=== PATIENT | female | born 1950 | race Caucasian/White ===

== ENCOUNTER 2016-09-06 09:52 | Emergency (ER) | payer MEDICARE, MEDICAID ==
[~2016-09-06] VITALS: Ht 144.8 cm; Wt 44.5 kg
[~2016-09-06 09:52] MED LIST: ACTO35TA PO; LEVO.05 PO; MONT5CHW2 CHEW; NYST100010 SS; PRIL40CA PO
[2016-09-06 09:53] VITALS: BP 117/68; PULSE 82; RESP 20; TEMP 98.1; O2SAT 96
--- NOTE | 2016-09-06 10:12 | PD ---
HPI Chief Complaint: Musculoskeletal Complaint Time Seen by Provider: 10:11 Travel History International Travel<30 days: No Contact w/Intl Traveler<30days: No Traveled to known affect area: No History of Present Illness HPI 66-year-old female presents to the emergency Department with complaint of right sided mid to lower back pain times one week. Reports picking up something heavy and straining her back. Back pain has progressively gotten worse. Denies encopresis, incontinence, saddle anesthesias. Denies fever, chills, nausea, vomiting, abdominal pain. Denies dysuria, urgency, frequency. Denies history of kidney stones. Has taken Advil and Tylenol with some relief. Has tried heating pad to affected area with some relief. Is using a back brace for support with some relief. Pain is worse with movement and palpation. Allergies to contrast media and sulfa. Denies anticoagulant therapy. Has an established primary care provider in [place]. No other modifying factors or associated signs and symptoms. PFSH Past Medical History GERD: Yes Musculoskeletal: Yes (OSTEOPOROSIS) Thyroid Disease: Yes Past Surgical History Abdominal Surgery: Yes (EX LAP) Social History Alcohol Use: No Tobacco Use: No Substance Use: No Allergies-Medications (Allergen,Severity, Reaction): Coded Allergies: Contrast Media (Unverified Allergy, Severe, HIVES, 09/06/16) Sulfa (Unverified Allergy, Severe, MUSCLE ACHES, RASH, 09/06/16) Reported Meds & Prescriptions Reported Meds & Active Scripts Active Ibuprofen 600 Mg Tab 600 Mg PO Q8HR PRN Robaxin (Methocarbamol) 500 Mg Tab 500 Mg PO QID PRN Mycostatin Susp (Nystatin) 500,000 U/5 Ml Susp 5 Ml SS QID 10 Days Reported Singulair (Montelukast Sodium) 5 Mg Chw 5 Mg CHEW HS Actonel 35 mg (Risedronate) 35 Mg Tab 1 Tab PO Q7D Prilosec 40 mg cap (Omeprazole) 40 Mg Cap 40 Mg PO DAILY Synthroid (Levothyroxine Sodium) 50 Mcg Tab 50 Mcg PO DAILY Review of Systems Except as stated in HPI: all other systems reviewed are Neg Physical Exam Narrative GENERAL: Well-nourished, well-developed female patient, in no acute distress; afebrile, nontoxic-appearing SKIN: Warm and dry. HEAD: Atraumatic. Normocephalic. EYES: Pupils equal and round. No scleral icterus. No injection or drainage. ENT: Mucosa pink and moist. Airway patent. NECK: Trachea midline. CARDIOVASCULAR: Regular rate. RESPIRATORY: No accessory muscle use. GASTROINTESTINAL: Abdomen soft, non-tender, nondistended. Positive bowel sounds. No hepato-splenomegaly, or palpable masses. No guarding. MUSCULOSKELETAL: Bilateral lower extremities supple and non-tense with 2+ pedal pulses and sensory intact; with full range of motion and 5/5 strength. Ambulatory with slow gait in the room. Active dorsiflexion and extension of bilateral feet. Sitting up in bed at 90. No obvious deformities. No clubbing. No cyanosis. No edema. BACK: No midline point tenderness on palpation of the lumbar spine. Tenderness on palpation of right iliosacral area. No obvious deformities. NEUROLOGICAL: Awake and alert. Oriented 3. No obvious cranial nerve deficits. Motor grossly within normal limits. Normal speech. Moves all extremities. 5/5 strength to all extremities. Sensory intact. PSYCHIATRIC: Appropriate mood and affect; insight and judgment normal. Data Data Last Documented VS Vital Signs Date Time Temp Pulse Resp B/P Pulse Ox O2 Delivery O2 Flow Rate FiO2 09/06/16 09:53 98.1 82 20 117/68 96 Room Air Orders Urinalysis - C+S If Indicated (09/06/16 10:12) Ketorolac Inj (Toradol Inj) (09/06/16 10:30) Orphenadrine Inj (Norflex Inj) (09/06/16 10:30) Labs Laboratory Tests Test 09/06/16 10:40 Urine Color YELLOW Urine Turbidity CLEAR Urine pH 5.5 Urine Specific [place] 1.028 Urine Protein TRACE mg/dL Urine Glucose (UA) NEG mg/dL Urine Ketones NEG mg/dL Urine Occult Blood SMALL Urine Nitrite NEG Urine Bilirubin NEG Urine Urobilinogen LESS THAN 2.0 MG/DL Urine Leukocyte Esterase NEG Urine RBC 2 /hpf Urine WBC 1 /hpf Urine Squamous Epithelial <1 /hpf Cells Urine Mucus FEW /lpf Microscopic Urinalysis Comment CULT NOT INDICATED MDM Medical Decision Making Medical Screen Exam Complete: Yes Emergency Medical Condition: Yes Medical Record Reviewed: Yes Differential Diagnosis Low back strain, muscle spasm, UTI, pyelonephritis Narrative Course 66-year-old female with right-sided low mid to low back pain. Lifted something heavy of week ago and that she strained her lower back but has been progressively getting worse. Denies fever, chills, nausea, vomiting. Patient is afebrile and nontoxic-appearing. She denies urinary symptoms. I will check a urinalysis to rule out UTI. Denies history of kidney stones. Denies encopresis, incontinence, saddle anesthesias. Patient is ambulatory with a slow , guarded gait. Urinalysis ordered. Toradol and Norflex ordered. 1143: Urinalysis negative for infection. Diagnosis Primary Impression: Low back strain Qualified Code: S39.012A - Low back strain, initial encounter Referrals: Primary Care Physician Patient Instructions: General Instructions, Low Back Strain (ED) Additional Instructions: Tylenol or ibuprofen as directed and as needed to reduce pain Robaxin as prescribed for muscle spasms Get adequate rest Ice and/or heating pad to affected area to reduce pain Avoid aggravating activity; increase activity as tolerated Follow-up with primary care provider Return to the emergency department immediately with worsening symptoms Med/Other Pt SpecificInfo: Prescription(s) given Scripts Ibuprofen 600 Mg [id number] Mg PO Q8HR PRN (PAIN) #20 TAB Ref 0 Prov:Donna Echeverria 09/06/16 Methocarbamol (Robaxin)500 Mg [id number] Mg PO QID PRN (MUSCLE SPASM) #30 TAB Ref 0 Prov:Donna Echeverria 09/06/16 Disposition: 01 DISCHARGE HOME Condition: Stable Donna Echeverria Sep 06, 2016 10:12
[2016-09-06] MEDS ORDERED: ORPHENADRINE INJ 60 MG/2 ML AMP IM ONE (10:30)
[2016-09-06] MEDS ORDERED: KETOROLAC TROMETHAMINE 60 MG/2 ML (IM) VIAL IM ONE (10:30)
[2016-09-06 11:18] LABS: BLOOD, URINE SMALL (NEG); GLUCOSE,URINE NEG (NEG); KETONE, URINE NEG (NEG); MUCUS URINE FEW /lpf (OCC); NITRITE,URINE NEG (NEG); PH, URINE 5.5 (5.0-8.5); SQUAMOUS EPITHELIAL CELL URINE <1 /hpf (0-5); URINE COLOR YELLOW (YELLW/STRAW)
[2016-09-06 11:31] LABS: COMMENT (UR) CULT NOT INDICATED; CULTURE IF INDICATED CULT NOT INDICATED
[2016-09-06] MEDS ORDERED: ROBA500T PO (11:44)
[2016-09-06] MEDS ORDERED: IBUP-232 PO (11:44)
== END 2016-09-06 12:08 | disposition home or self-care (01) ==
LOC: NEPK 09:52
DX: S39.012A Strain of muscle, fascia and tendon of lower back, initial encounter (principal); M81.0 Age-related osteoporosis without current pathological fracture; X50.0XXA Overexertion from strenuous movement or load, initial encounter
CPT/HCPCS: 81001; 96372; 99283; J1885; J2360